=== PATIENT | male | born 1970 | race African-American/Black ===

== ENCOUNTER 2016-12-04 11:17 | Emergency (ER) | payer OTHER ==
[~2016-12-04] VITALS: Ht 177.8 cm; Wt 77.1 kg
[~2016-12-04 11:17] MED LIST: ADULT WAL-100 MG/5 M PO; ADVAIR 250-501 EACH INH; ADVAIR HFA115 MCG/21 INH; ALBUTEROL2.5 MG/0.5 INH; ALBUTEROL2.5 MG/31 IH; NOHOMEMEDICATIONS; PREDNISONE 20 M20 M1 PO; PREDNISONE 5 MG5 M1 PO; PROAIR HFA8.5 GM IH; VENTOLIN HFA 1818 GM INH
[2016-12-04] MEDS ORDERED: VENTOLIN HFA 1818 GM INH (12:53)
[2016-12-04] MEDS ORDERED: PREDNISONE 20 M20 MG PO (12:53)
[2016-12-04] MEDS ORDERED: PROMETHAZINE-C120 ML PO (12:55)
[2016-12-04 13:06] VITALS: BP 120/86
== END 2016-12-04 13:07 | disposition home or self-care (01) ==
LOC: ER 11:17
DX: Z71.6 Tobacco abuse counseling (principal); J06.9 Acute upper respiratory infection, unspecified; Z72.0 Tobacco use; F10.99 Alcohol use, unspecified with unspecified alcohol-induced disorder; J45.909 Unspecified asthma, uncomplicated; J44.9 Chronic obstructive pulmonary disease, unspecified